=== PATIENT | female | born 1945 | race Caucasian/White ===

== ENCOUNTER → 2017-11-07 | Outpatient (CLI) | payer MEDICARE, BC ==
[~2017-11-07] MED LIST: ASPI325T PO; ATEN-100 PO; ATEN-102 PO; ATEN25TA PO; CALC600C3 PO; CALTTAB PO; DICL75 PO; DICL75TA PO; ECASA81 PO; FERR240T PO; GLUCTAB PO; HYDR-3580 PO; LISI-360 PO; LISI-515 PO; LISI10TA3 PO; METF1000 PO; METF500 PO; METF500T PO; MULTTAB67 PO; RIVA10 PO; SIMV40TA PO; TAB-TAB PO; TRAM50TA PO; Z.0.COMMODE-3:1; Z.0.WALKERFRONT
[2017-11-07 09:27] LABS: AUTOMATED NEUTROPHIL # 4.6 TH/MM3 (1.8-7.7); BASOPHIL # 0.1 TH/MM3 (0-0.2); BASOPHIL % 0.7 % (0.0-2.0); EOSINOPHIL # 0.2 TH/MM3 (0-0.4); EOSINOPHIL % 2.7 % (0.0-4.0); HEMATOCRIT 36.6 % (35.0-46.0); HEMOGLOBIN 12.4 GM/DL (11.6-15.3); LYMPH % 28.2 % (9.0-44.0); LYMPHOCYTE # 2.1 TH/MM3 (1.0-4.8); MEAN CORPUSCULAR HEMOGLOBIN 28.5 PG (27.0-34.0); MEAN CORPUSCULAR HGB CONC 33.9 % (32.0-36.0); MEAN PLATELET VOLUME 7.9 FL (7.0-11.0); MONO % 6.8 % (0.0-8.0); MONOCYTE # 0.5 TH/MM3 (0-0.9); NEUT % 61.6 % (16.0-70.0); PLATELET COUNT 219 TH/MM3 (150-450); RED BLOOD COUNT 4.36 MIL/MM3 (4.00-5.30); RED CELL DISTRIBUTION WIDTH 13.8 % (11.6-17.2); WHITE BLOOD COUNT 7.4 TH/MM3 (4.0-11.0)
[2017-11-07 09:30] LABS: BILIRUBIN, URINE NEG (NEG); BLOOD, URINE NEG (NEG); GLUCOSE,URINE TRACE mg/dL (NEG); HYALINE CAST, URINE 33 /lpf (RARE); KETONE, URINE TRACE mg/dL (NEG); MUCUS URINE FEW /lpf (OCC); NITRITE,URINE NEG (NEG); PH, URINE 5.5 (5.0-8.5); SQUAMOUS EPITHELIAL CELL URINE <1 /hpf (0-5); URINE COLOR YELLOW (YELLW/STRAW); URINE LEUKOCYTE ESTERASE NEG (NEG)
[2017-11-07 09:35] LABS: INTERNATIONAL NORMALIZED RATIO 1.1 RATIO; PROTHROMBIN TIME - PATIENT 10.7 SEC (9.8-11.6)
[2017-11-07 09:41] LABS: BICARBONATE 25.1 MEQ/L (21.0-32.0); CREATININE 0.88 MG/DL (0.50-1.00)
== END ==
LOC: CPRE 08:03
PROVIDERS: ATTEND Orthopaedic Surgery Orthopaedic Surgery of the Spine
DX: Z79.01 Long term (current) use of anticoagulants (principal); M16.12 Unilateral primary osteoarthritis, left hip; Z01.812 Encounter for preprocedural laboratory examination
CPT/HCPCS: 36415; 80048; 81001; 85025; 85610; 85730

== ENCOUNTER 2017-11-22 05:19 | Inpatient (IN) | payer MEDICARE, BC ==
[~2017-11-22] VITALS: Ht 165.1 cm; Wt 85.7 kg
[~2017-11-22 05:19] MED LIST changes: -ASPI325T PO; -ATEN-100 PO; -ATEN-102 PO; -CALTTAB PO; -DICL75 PO; -GLUCTAB PO; -HYDR-3580 PO; -LISI-360 PO; -LISI-515 PO; -METF500 PO; -RIVA10 PO; -TAB-TAB PO; -Z.0.COMMODE-3:1; -Z.0.WALKERFRONT
[2017-11-22] MEDS ORDERED: EXPAREL PERI-ARTICULAR INJECTION (TOTAL VOL. 60 ML) P-ARTICULR SCH ×2 (05:45)
[2017-11-22] MEDS ORDERED: TRANEXAMIC ACID INJ 860 MG in SODIUM CHLORIDE 0.9% INJ 100 ML IV SCH (05:45)
[2017-11-22] MEDS ORDERED: SODIUM CHLORID 0.9% 500 ML IV PRN (05:45)
[2017-11-22] MEDS ORDERED: CHLORHEXIDINE GLUCONATE 2 % 1 PACK (2 CLOTHS) TOPICAL PRN (05:45)
[2017-11-22] MEDS ORDERED: CHLORHEXIDINE GLUCONATE 4% SOLN 120 ML BTL TOPICAL SCH (05:45)
[2017-11-22] MEDS ORDERED: METOPROLOL TARTRATE 25 MG TAB PO PRN (05:45)
[2017-11-22] MEDS ORDERED: ceFAZolin 2 GM PREMIX 50 ML IV SCH (05:45)
[2017-11-22] MEDS ORDERED: POVIDONE IODINE 5% (ANTISEPSIS KIT) 4 APPLICATIONS EACH NARE PRN (05:45)
[2017-11-22] MEDS ORDERED: VANCOMYCIN 1000 MG/NS 250 ML (for <70 kg) IV SCH ×2 (05:45)
[2017-11-22] MEDS: LACTATED RINGER'S 1000 ML IV PRN ×2 (06:00→09:40)
[2017-11-22] MEDS ORDERED: GENTAMICIN SULFATE 80 MG/2 ML VIAL ONE (06:24)
[2017-11-22] MEDS ORDERED: BUPIVACAINE/EPINEPHRINE 0.25% 50 ML VIAL ONE (06:24)
[2017-11-22] MEDS ORDERED: BUPIVACAINE/EPINEPHRINE 0.25% PF 10 ML VIAL ONE (06:24)
[2017-11-22] MEDS ORDERED: ACETAMINOPHEN 1000 MG/100 ML 100 ML IV ONE (06:28)
[2017-11-22] MEDS ORDERED: GLIP5TAB8 PO (06:34)
--- NOTE | 2017-11-22 09:27 | PD.OP ---
cc: Sergio Altamirano MD Operative Report Date of Surgery: Nov 22, 2017 Preoperative Diagnosis: Osteoarthritis left hip Postoperative Diagnosis: Same Procedure: Left total hip replacement arthroplasty, direct anterior exposure Anesthesia: Gen. 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 Despite extensive conservative care this patient continues to be painful and now presents for surgical treatment. NOTE: Heide Otto PA-C was present for the entire surgical procedure as my financial planning assistant. In my medical opinion her skill and care was necessary for the proper management of this patient. COMPONENTS: COMPANY: [employer] CUP: [place], 52 mm, 100 series, gription surface LINER: Altrx 32 mm, neutral STEM: [place], standard offset, 14, hydroxyapatite-coated HEAD: 32 mm, +1, metal, 12/14 taper PROCEDURE: This patient was brought to the operating room and anesthetized in the supine position and positioned on the fracture table with both legs held extended. The left hip and leg was scrubbed with alcohol followed by Hibiclens followed by ChloraPrep and draped sterilely. Antibiotics were given within routine time window and a timeout was done. A 4 inch incision was made starting 2 cm distal and 2 cm lateral to the anterior superior iliac spine. The fascia nina was opened longitudinally. The interval between the fascia nina and the rectus was opened down to the capsule of the hip joint. Retractors were positioned allowing good visualization of the capsule. This was opened longitudinally and flaps were created. Stay sutures were utilized. Exposure was excellent. The neck was cut at the proper location using fluoroscopy as a guide. The head was removed. Deep retractors were positioned allowing good visualization of the acetabulum. Acetabulum was deepened down to the floor starting with a proper size reamer and reaming up to 51 mm. A trial was utilized. Fluoroscopy was used to check position and confirmed satisfactory alignment. The rim was reamed with a 52 mm reamer and the final cup was positioned in approximately 20 of anteversion and 40-45 of abduction. Position was satisfactory. A single hole eliminator was positioned followed by the final liner. The lifting hook was utilized. The leg was dropped to the floor, maximally externally rotated and brought across the midline. Retractors were positioned. A box osteotome was utilized followed by progressive broaching to the proper stem size. Trial reduction showed excellent alignment and fit. With 60 of external rotation the leg was dropped to the floor without evidence of anterior subluxation. The wound was irrigated. The final stem was inserted and was found to be very stable. The final reduction using the final head. Stability was as previously noted. Intraoperative x-rays were taken. The wound was irrigated copiously. Hemostasis was controlled. Local anesthesia was utilized. The capsule was repaired with #2 Tycron sutures. The fascia nina was repaired with running 0 PDS on a loop. Subcutaneous tissue was approximated with 2-0 Vicryl and skin with running intradermal 3-0 Vicryl followed by Steri-Strips. A sterile dressing was applied. The patient was awakened and taken to the recovery room in satisfactory condition. FINDINGS: There was severe osteoarthritis of the left hip. A very large degenerative cyst along the rim of the labrum was noted. The final solution was excellent. There was no complication that was appreciated. Sergio Altamirano MD Nov 22, 2017 09:27
[2017-11-22] MEDS ORDERED: HYDR-3580 PO (09:31)
[2017-11-22] MEDS ORDERED: ASPI325T33 PO (09:31)
[2017-11-22] MEDS ORDERED: MIDAZOLAM HCL 2 MG/2 ML VIAL ONE (09:52)
[2017-11-22] MEDS ORDERED: MORPHINE SULFATE 8 MG/ML INJ IM PRN (10:00)
[2017-11-22] MEDS ORDERED: ASPIRIN 81 MG CHEW TAB CHEW ONE (10:00)
[2017-11-22] MEDS ORDERED: Post-op Orders (for Pharmacy) XX ONE (10:00)
[2017-11-22] MEDS ORDERED: NALOXONE HCL 0.4 MG/ML AMP IV PUSH PRN (10:00)
[2017-11-22] MEDS ORDERED: MISCELLANEOUS NURSING INFORMATION XX PRN (10:30)
[2017-11-22] MEDS ORDERED: DO NOT ADM ANY ANTICOAGULANT DRUGS PRN (10:45)
[2017-11-22] MEDS: LACTATED RINGER'S 1000 ML INJ 1,000 ML IV SCH ×2 (11:00→21:50)
[2017-11-22] MEDS ORDERED: ePHEDrine/NS 25 MG/5 ML SYRINGE IV ONE (12:00)
[2017-11-22] MEDS ORDERED: PROPOFOL 200 MG/20 ML AMP IV ONE (12:00)
[2017-11-22] MEDS ORDERED: DEXAMETHASONE SOD PHOS 4 MG/ML VIAL IV ONE (12:00)
[2017-11-22] MEDS ORDERED: GLYCOPYRROLATE 1 MG/5 ML SYRINGE IV PUSH ONE (12:00)
[2017-11-22] MEDS ORDERED: NEOSTIGMINE 5 MG/5 ML SYRINGE IV PUSH ONE (12:00)
[2017-11-22] MEDS ORDERED: ROCURONIUM INJ 50 MG/5 ML SYRINGE IV PUSH ONE (12:00)
[2017-11-22] MEDS ORDERED: LACTATED RINGER'S 1000 ML INJ 1,000 ML IV ONE (12:00)
[2017-11-22] MEDS ORDERED: PHENYLEPH/NS 1000 MCG/10 ML SYR IV ONE (12:00)
[2017-11-22] MEDS ORDERED: ONDANSETRON HCL 4 MG/2 ML VIAL IV ONE (12:00)
[2017-11-22] MEDS ORDERED: LIDOCAINE HCL 1% PF 5 ML SYRINGE OTHER ONE (12:00)
[2017-11-22] MEDS: glipiZIDE 5 MG TAB PO SCH (15:18)
[2017-11-22] MEDS: ACETAMINOPHEN/HYDROcodone 325 MG/7.5 MG TAB PO PRN ×2 (15:24→21:14)
[2017-11-22 16:00] VITALS: BP 158/73; PULSE 90; RESP 18; TEMP 96.9; O2SAT 94
[2017-11-22] MEDS ORDERED: metFORMIN HCL 500 MG TAB PO SCH (16:00)
--- NOTE | 2017-11-22 20:26 | RADRPT ---
EXAM DATE/TIME: 11/22/2017 08:09 [facility] COMPARISON: No previous studies available for comparison. INDICATIONS : Left total hip replacement. MEDICAL HISTORY : Hypertension. Diabetes mellitus type II. SURGICAL HISTORY : Tubal ligation. Right total hip replacement. ENCOUNTER: Initial ACUITY: 1 day PAIN SCORE: Non-responsive. LOCATION: Left anterior hip. FINDINGS: 2 views of the left hip obtained digitally in the operating room using C-arm after placement of total hip arthroplasty. CONCLUSION: Intraoperative images. Catracho Dickens MD on November 22, 2017 at 20:23 Board Certified Radiologist. This report was verified electronically.
[2017-11-22 20:27] VITALS: O2SAT 94
[2017-11-22] MEDS: MAGNESIUM HYDROXIDE SUSP 30 ML CUP PO SCH (20:27)
[2017-11-22] MEDS: ASPIRIN EC 81 MG TABEC PO SCH (20:33)
[2017-11-22 20:55] VITALS: BP 139/65; PULSE 95; RESP 17; TEMP 97.3; O2SAT 95
[2017-11-22] MEDS ORDERED: PRAVASTATIN SOD 80 MG TAB PO SCH (21:00)
[2017-11-22] MEDS ORDERED: LISINOPRIL 10 MG TAB PO SCH (21:00)
[2017-11-22] MEDS ORDERED: ATENOLOL 25 MG TAB PO SCH (21:00)
[2017-11-22] MEDS ORDERED: SENNOSIDES 8.6 MG TAB PO SCH (21:00)
[2017-11-22 23:15] VITALS: BP 139/66; PULSE 96; RESP 18; TEMP 98; O2SAT 96
[2017-11-22] MEDS ORDERED: WALKER WHEELS/F1 MIS (23:26)
[2017-11-22] MEDS ORDERED: COMMODE 3-IN-11 MIS (23:27)
--- NOTE | 2017-11-22 23:29 | HHI.FF ---
Face to Face Verification Diagnosis: (1) Osteoarthritis of left hip Physical Therapy Gait training, Safety evaluation, Transfer training, bed to chair Hip: Total hip, Protocol: Left, Progress to weight bearing Additional Instructions PT 3-4 days/wk x 2 weeks. WBAT LLE. Anterior MANISHA precautions. Gait training. Nursing RN Days per Week: 2 x Week(s): 1 Dressing Changes: Do not change dressing Additional Instructions Vitals assessment. Dressing assessment - do not change dressing unless saturated. I have seen patient Shy Oliva on 11/22/17. My clinical findings support the need for the requested home health care services because: Limited ability to care for self High risk of falls I certify that my clinical findings support that this patient is homebound because: Post-op weakness Unsteady gait/balance Heide Otto Nov 22, 2017 23:29
[2017-11-23] MEDS: ACETAMINOPHEN/HYDROcodone 325 MG/7.5 MG TAB PO PRN ×4 (01:03→14:20)
[2017-11-23 03:16] VITALS: BP 139/62; PULSE 89; RESP 18; TEMP 98; O2SAT 95
[2017-11-23] MEDS: glipiZIDE 5 MG TAB PO SCH (06:32)
[2017-11-23 08:00] VITALS: BP 115/55; PULSE 91; RESP 18; TEMP 98.2; O2SAT 94
[2017-11-23] MEDS: MAGNESIUM HYDROXIDE SUSP 30 ML CUP PO SCH (08:53)
[2017-11-23] MEDS: ASPIRIN EC 81 MG TABEC PO SCH (08:53)
[2017-11-23] MEDS ORDERED: metFORMIN HCL 500 MG TAB PO SCH (09:00)
[2017-11-23] MEDS ORDERED: ATENOLOL 25 MG TAB PO SCH (09:00)
[2017-11-23 09:22] LABS: HEMATOCRIT 30.1 % (35.0-46.0); HEMOGLOBIN 10.4 GM/DL (11.6-15.3)
[2017-11-23] MEDS: LACTATED RINGER'S 1000 ML INJ 1,000 ML IV SCH (10:20)
[2017-11-23] MEDS ORDERED: MISCELLANEOUS PHARMACY INFORMATION XX ONE (11:00)
[2017-11-23 12:00] VITALS: BP 124/58; PULSE 93; RESP 18; TEMP 99; O2SAT 94
--- NOTE | 2017-11-23 13:00 | HHI.DCPOC ---
Discharge Care Plan Diagnosis: (1) Osteoarthritis of left hip Your Health Problems Are: Difficulty with ADL Incision/Drains Swelling Goals to Promote Your Health * To prevent worsening of your condition and complications * To maintain your health at the optimal level Directions to Meet Your Goals Take your medications as prescribed Follow your dietary instruction Follow activity as directed Keep your appointments as scheduled Take your immunizations and boosters as scheduled If your symptoms worsen call your PCP, if no PCP go to Urgent Care Center or Emergency Room Smoking is Dangerous to Your Health. Avoid second hand smoke Call the 24-hour hour crisis hotline for domestic abuse at Heide Otto Nov 23, 2017 13:00
--- NOTE | 2017-11-23 13:01 | HHI.DS ---
Discharge Summary Admission Date Nov 22, 2017 at 05:19 Discharge Date: Nov 23, 2017 Admitting Diagnosis see below Diagnosis: (1) Osteoarthritis of left hip Diagnosis: Principal ICD Codes: M16.12 - Unilateral primary osteoarthritis, left hip Procedures Left total hip arthroplasty, direct anterior approach Brief History This is a 72 year old female patient CBC/BMP: 11/23/17 0902 Significant Findings Laboratory Tests Test 11/23/17 09:02 Hemoglobin 10.4 GM/DL (11.6-15.3) Hematocrit 30.1 % (35.0-46.0) Hospital Course pod#1 [facility] Discharge Disposition: Disch w/ Home Health Serv Discharge Instructions Diet Instructions: Diabetic Diet, High Fiber Diet Activities You Can Perform: Weight Bearing as Fan Additional Activity Instruc.: Anterior avery protocol New Medications: Commode 3-in-1 (Commode 3-in-1) 1 Mis Mis EA .XX DIRECTED, #1 0 Refills Walker with Front Wheels (Walker with Front Wheels) 1 Mis Mis EA .XX DIRECTED, #[address] (Aspirin EC) 325 Mg Tabdr 81 MG PO BID for Prevent Blood Clot, #60 TAB Hydrocodone/Acetaminophen (Hydrocodone-Acetamin 7.5-325) 7.5 Mg-325 Mg Tablet 1 TAB PO Q4H PRN for PAIN, #40 TAB Continued Medications: Atenolol (Atenolol) 25 Mg Tab 25 MG PO HS for Blood Pressure Management, #30 TAB Atenolol (Atenolol) 25 Mg Tab 50 MG PO DAILY for Blood Pressure Management, #30 TAB Calcium Carbonate/Vitamin D3 (Calcium 600 + Vit D 400 Softgl) 600 Mg-400 Capsule 600 CAP PO TID for Nutritional Supplement Diclofenac Sodium DR (Diclofenac Sodium DR) 75 Mg Tabdr 75 MG PO BID, #60 TAB 0 Refills Ferrous Gluconate (Ferrous Gluconate) 240 Mg (27 Mg Iron) Tab 480 MG PO HS for Nutritional Supplement, #30 TAB 0 Refills Glipizide (Glipizide) 5 Mg Tab 5 MG PO BIDAC for Blood Sugar Management, #60 TAB 0 Refills Take 30 minutes before a meal Lisinopril (Lisinopril) 10 Mg Tab 20 MG PO HS, #30 TAB 0 Refills Metformin (Metformin) 1,000 Mg Tab 1000 MG PO DAILY for Blood Sugar Management, #30 TAB 0 Refills With a meal Metformin (Metformin) 500 Mg Tab 1000 MG PO AC DINNER for Blood Sugar Management, #30 TAB 0 Refills With a meal Multiple Vitamin (Multiple Vitamin) 1 Tab 1 TAB PO DAILY for Nutritional Supplement, TAB 0 Refills Simvastatin (Simvastatin) 40 Mg Tab 40 MG PO HS for Cholesterol Management, #30 TAB 0 Refills Discontinued Medications: Aspirin DR (Aspirin DR) 81 Mg Tabdr 81 MG PO DAILY, TAB 0 Refills Heide Otto Nov 23, 2017 13:01
--- NOTE | 2017-11-23 13:02 | PD.ORT.PN ---
Subjective Subjective Remarks Doing well. Pain moderately controlled. She did require a dose of morphine last night. Doing better this morning. Did well with PT today. Urinating readily. No CP or SOB. Ready for d/c home Objective Vitals Vital Signs Date Time Temp Pulse Resp B/P (MAP) Pulse Ox O2 Delivery O2 Flow Rate FiO2 11/23/17 12:00 99.0 93 18 124/58 (80) 94 11/23/17 11:02 18 11/23/17 08:00 98.2 91 18 115/55 (75) 94 11/23/17 04:56 21 11/23/17 03:16 98.0 89 18 139/62 (87) 95 11/22/17 23:15 98.0 96 18 139/66 (90) 96 11/22/17 20:55 97.3 95 17 139/65 (89) 95 11/22/17 20:27 94 21 11/22/17 16:24 18 11/22/17 16:00 96.9 90 18 158/73 (101) 94 11/22/17 14:40 97.7 80 16 162/70 (100) 94 Room Air 11/22/17 14:00 92 19 164/71 (102) 97 Room Air 11/22/17 13:15 Room Air I/O 11/22/17 11/22/17 11/22/17 11/23/17 11/23/17 11/23/17 07:00 15:00 23:00 07:00 15:00 23:00 Intake Total 2479 ml 580 ml 460 ml Output Total 800 ml Balance 1679 ml 580 ml 460 ml Intake Oral 240 ml 480 ml 360 ml IV Total 1239 ml 100 ml 100 ml Other 1000 ml Output Urine Total 500 ml Estimated Blood Loss 300 ml # Voids 2 1 # Bowel Movements 0 0 Result Diagram: 11/23/17 0902 Procedures Left total hip arthroplasty, direct anterior approach Objective Remarks Sitting up in chair With her NAD VSS Left LE Hip dressing c/d/i, minimal drainage, mild swelling and warmth, no erythema +motor at, +sens, +nvi Neg homans Assessment & Plan Ortho Post Op Day #: 1 Problem List: (1) Osteoarthritis of left hip ICD Codes: M16.12 - Unilateral primary osteoarthritis, left hip Qualifiers: Qualified Codes: M16.12 - Unilateral primary osteoarthritis, left hip Assessment and Plan pod#1 s/p L MANISHA, anterior approach Ortho stable. Ok to d/c home w hhc today. [place] 7.5,g as needed. ASA 81mg twice daily Hold dressing changes unless saturated. PT - WBAT LLE. Anterior manisha precautions. F/U in 2 weeks as scheduled. F2F written. Heide Otto Nov 23, 2017 13:02
== END 2017-11-23 15:12 | disposition home health service (06) | DRG 470 ==
LOC: HSDI 05:19 → N06A 14:52
PROVIDERS: ADMIT Orthopaedic Surgery Orthopaedic Surgery of the Spine; ATTEND Orthopaedic Surgery Orthopaedic Surgery of the Spine
PROC: 0SRB04A Replacement of Left Hip Joint with Ceramic on Polyethylene Synthetic Substitute, Uncemented, Open Approach (ICD-10-PCS; principal; 2017-11-22 07:22)
DX: M16.12 Unilateral primary osteoarthritis, left hip (principal); E11.9 Type 2 diabetes mellitus without complications; I10 Essential (primary) hypertension; Z79.84 Long term (current) use of oral hypoglycemic drugs
CPT/HCPCS: 36415; 73502; 76000; 82948; 85014; 85018; 86850; 86900; 86901; 86920; 94150; C1776; C9290; J0131; J0690; J1100; J1580; J2250; J2270; J2370; J2405; J2710; J3010; J3370; J7050; J7120